=== PATIENT | female | born 1965 | race Two or more races ===

== ENCOUNTER 2018-04-10 21:43 | Emergency (ER) | payer MEDICAID ==
[~2018-04-10] VITALS: Ht 170.2 cm; Wt 95.3 kg
[2018-04-10 22:13] LABS: Urine Bacteria FEW /hpf (None Seen); Urine Blood 2+ /uL (Negative); Urine Mucus FEW (None Seen); Urine Specific Gravity 1.023 (1.001-1.035); Urine WBC 5 /hpf (0 - 5)
[2018-04-10 22:39] LABS: Basophils # (auto) 0 uL; Basophils % (auto) 0.4 % (0.0-2.0); Eosinophils # (auto) 0 uL; Eosinophils % (auto) 0.6 % (0.0-7.0); Hematocrit 44.7 % (36.0-46.0); Hemoglobin 15.8 g/dL (12.2-16.2); Lymphocytes # (auto) 1.2 uL; Lymphocytes % (auto) 13.3 % (10.0-50.0); Mean Corpuscular Hemoglobin 33.1 pg (28.0-32.0); Mean Corpuscular Hgb Conc. 35.4 g/dL (32.0-36.0); Mean Corpuscular Volume 93.7 fL (80.0-100.0); Monocytes # (auto) 0.3 uL; Monocytes % (auto) 3.8 % (0.0-12.0); Neutrophils # (auto) 7.2 uL; Neutrophils % (auto) 81.9 % (37.0-80.0); Nucleated Red Blood Cells % 0.1 %; Platelet Count (auto) 268 10^3/uL (140-450); Red Blood Cells 4.78 10^6/uL (4.0-5.20); Red Cell Distribution Width 13.1 % (11.8-14.3); White Blood Cell 8.8 10^3/uL (4.4-10.8)
[2018-04-10 22:54] LABS: Albumin 3.7 g/dL (3.4-5.0); Amylase 51 U/L (25-115); Anion Gap 6 (5-15); BUN/Creatinine Ratio 19.5; Blood Urea Nitrogen 15 mg/dL (7-18); Calcium 8.1 mg/dL (8.5-10.1); Carbon Dioxide 24 mmol/L (21-32); Chloride 107 mmol/L (98-107); GFR African American 101 mL/min; GFR Non-African American 84 mL/min; Glucose 113 mg/dL (74-106); INR 0.95 (0.9-1.15); Lipase 61 U/L (73-393); Magnesium 2.2 mg/dL (1.6-2.6); Partial Thromboplastin Time 33.4 sec (23.78-33.04); Potassium 3.7 mmol/L (3.5-5.1); Prothrombin Time 10.2 sec (9.27-12.13); Sodium 137 mmol/L (136-145)
[2018-04-10 22:59] LABS: Alanine Aminotransferase 48 U/L (13-56); Alkaline Phosphatase 100 U/L (45-117); Aspartate Aminotransferase 32 U/L (15-37); Bilirubin, Total 0.5 mg/dL (0.2-1.0)
[2018-04-11] MEDS ORDERED: HYDROcodone-ACET 10/325MG TAB PO ONE (05:15)
[2018-04-11] MEDS ORDERED: ONDANSETRON HCL 4 MG/2 ML VIAL IM ONE (05:15)
[2018-04-11] MEDS ORDERED: MORPHINE SULFATE 10 MG/ML INJ 1ML SDV IM ONE (05:15)
[2018-04-11 05:27] VITALS: BP 128/69
== END 2018-04-11 06:11 | disposition home or self-care (01) ==
LOC: ER 21:46
DX: R31.9 Hematuria, unspecified (principal); F41.9 Anxiety disorder, unspecified; R11.2 Nausea with vomiting, unspecified; R19.7 Diarrhea, unspecified; Z98.890 Other specified postprocedural states; Z32.02 Encounter for pregnancy test, result negative
CPT/HCPCS: 36415; 71046; 74176; 80053; 81001; 81025; 82150; 83690; 83735; 84484; 85025; 85610; 85730; 93005; 96372; 99284; J2270; J2405